=== PATIENT | female | born 1995 | race Caucasian/White ===

== ENCOUNTER 2021-01-07 17:53 | Emergency (ER) | payer SELFPAY ==
[~2021-01-07] VITALS: Ht 182.9 cm; Wt 129.1 kg
[2021-01-07] MEDS ORDERED: KETOROLAC 60MG 2ML VIAL IM ONE (20:45)
[2021-01-07] MEDS ORDERED: diazePAM 10 MG TAB PO ONE (20:45)
[2021-01-07] MEDS ORDERED: ACETAMINOPHEN 500 MG TAB PO ONE (20:45)
[2021-01-07] MEDS ORDERED: LIDOCAINE 5% (LIDODERM) PATCH TD ONE (20:45)
[2021-01-07] MEDS ORDERED: **NOTE PATIENT COMMENT** MISC XX SCH (21:00)
--- NOTE | 2021-01-07 21:11 | REPVR ---
PROCEDURE INFORMATION: Exam: XR Lumbosacral Spine Exam date and time: 01/07/2021 9:02 PM Age: 25 years old Clinical indication: Other: Tender; Additional info: Fall, PT tender TECHNIQUE: Imaging protocol: XR of the lumbosacral spine. Views: 4 or 5 views. COMPARISON: No relevant prior studies available. FINDINGS: Bones/joints: Normal. No acute fracture. Normal alignment. Soft tissues: Unremarkable. IMPRESSION: No acute findings. Electronically signed by: Yasmani Shane On 01/07/2021 21:11:15 PM
--- NOTE | 2021-01-07 21:12 | REPVR ---
PROCEDURE INFORMATION: Exam: XR Thoracic Spine Exam date and time: 01/07/2021 9:02 PM Age: 25 years old Clinical indication: Other: Tender; Additional info: Fall, PT tender TECHNIQUE: Imaging protocol: XR of the thoracic spine. Views: 3 views. COMPARISON: No relevant prior studies available. FINDINGS: Bones/joints: Shallow dextroscoliosis. Otherwise unremarkable. Soft tissues: Unremarkable. IMPRESSION: No acute findings. Electronically signed by: Yasmani Shane On 01/07/2021 21:12:11 PM
[2021-01-07] MEDS ORDERED: NAPR-837 PO (22:24)
[2021-01-07] MEDS ORDERED: METH-1165 PO (22:24)
[2021-01-07] MEDS ORDERED: ASPE4PAD TOP (22:24)
[2021-01-07 22:54] VITALS: BP 132/79
== END 2021-01-07 22:55 | disposition home or self-care (01) ==
LOC: M ED 17:53
DX: M54.5 Low back pain (principal); F17.200 Nicotine dependence, unspecified, uncomplicated; Z90.49 Acquired absence of other specified parts of digestive tract; Z87.820 Personal history of traumatic brain injury
CPT/HCPCS: 72072; 72110; 96372; 99283; J1885